=== PATIENT | male | born 1975 | race Caucasian/White ===

== ENCOUNTER → 2019-03-01 16:32 | Outpatient (CLI) | payer OTHER, SELFPAY ==
[2019-03-01 17:51] LABS: Cholesterol 232 mg/dL (140-199); HDL Cholesterol 52 mg/dL (40-60); LDL Cholesterol Calculated 154 mg/dL (<100); Triglycerides 132 mg/dL (35-150)
[2019-03-01 18:05] LABS: Vitamin D 25 Hydroxy (D3) 34.5 ng/mL (30.0-100.0)
== END ==
PROVIDERS: PCP Student in an Organized Health Care Education/Training Program; Visit Provider Student in an Organized Health Care Education/Training Program
DX: Z13.220 Encounter for screening for lipoid disorders (principal); E55.9 Vitamin D deficiency, unspecified
CPT/HCPCS: 36415; 80061; 82306

== ENCOUNTER → 2020-05-29 15:52 | Outpatient (CLI) | payer OTHER, SELFPAY ==
[2020-05-29] MEDS: COVID-19 VACC, Ad26(JANSSEN)/PF 0.5 ML IM (16:00)
== END ==
PROVIDERS: PCP Student in an Organized Health Care Education/Training Program; Visit Provider Internal Medicine
DX: Z23 Encounter for immunization (principal)
CPT/HCPCS: 0031A; 91303

== ENCOUNTER → 2020-08-16 11:46 | Outpatient (CLI) | payer OTHER, SELFPAY ==
--- NOTE | 2020-08-16 11:48 | DI.RAD.S_ITS ---
PROCEDURE: XR KNEE LT 3V INDICATIONS: Unilateral primary osteoarthritis, unspecified kne TECHNIQUE: 3 views of the knee were acquired. COMPARISON: None. FINDINGS: Bones: No fractures or dislocations. No suspicious bony lesions. Note is made of a fixation screw crossing the lateral femoral condyle at the knee level, likely related to tendon transfer procedure. There is moderate narrowing of the medial compartment joint with at the the, consistent with longstanding posttraumatic degenerative osteoarthritic change. Soft tissues: No joint effusion. No suspicious soft tissue calcifications. IMPRESSION: No acute trauma found. Moderate osteoarthritis medial compartment. Tendon transfer fixation device noted at the lateral femoral condyle area. Dictated by: Franki Dykes M.D. on 08/16/2020 at 12:08 Approved by: Franki Dykes M.D. on 08/16/2020 at 12:10
== END ==
PROVIDERS: PCP Student in an Organized Health Care Education/Training Program; Referring Provider Physical Medicine & Rehabilitation; Visit Provider Physical Medicine & Rehabilitation
DX: Z98.890 Other specified postprocedural states; M17.12 Unilateral primary osteoarthritis, left knee
CPT/HCPCS: 73562

== ENCOUNTER → 2021-02-07 15:51 | Outpatient (CLI) | payer OTHER, SELFPAY ==
[2021-02-07] MEDS: COVID-19 VACC #3, MRNA(MOD) 50 MCG/0.25 ML VIAL IM (16:17)
== END ==
PROVIDERS: PCP Student in an Organized Health Care Education/Training Program; Visit Provider Internal Medicine
DX: Z23 Encounter for immunization (principal)
CPT/HCPCS: 0013A; 91301

== ENCOUNTER → 2021-03-06 07:09 | Outpatient (CLI) | payer OTHER, SELFPAY ==
[2021-03-06 07:39] LABS: COVID19 -Nasal RAPID Negative (Negative)
== END ==
PROVIDERS: PCP Student in an Organized Health Care Education/Training Program; Visit Provider Physician Assistant
DX: Z20.822 Contact with and (suspected) exposure to COVID-19 (principal)
CPT/HCPCS: 87635

== ENCOUNTER → 2021-07-17 07:09 | Outpatient (CLI) | payer OTHER, SELFPAY ==
[2021-07-17 08:22] LABS: Add Manual Diff / Slide Review NO; Basophils Absolute Auto 0 /uL (0-100); Basophils Percent Auto 1.1 % (0-2); Eosinophils Absolute Auto 100 /uL (0-450); Hematocrit 40.1 % (41-53); Hemoglobin 13.5 g/dL (13.5-17.5); Lymphocytes Absolute Auto 1300 /uL (1100-4500); Lymphocytes Percent Auto 31.5 % (25-40); Mean Corpuscular HGB Conc 33.6 % (30-36); Mean Corpuscular Hemoglobin 29.4 PG (26-34); Mean Corpuscular Volume 87.6 fL (80-100); Monocytes Absolute Auto 500 /uL (0-900); Monocytes Percent Auto 11.1 % (3-14); Neutrophils Absolute Auto 2200 /uL (1500-7000); Neutrophils Percent Auto 53.3 % (50-75); Platelet Count 189 X10^3/uL (150-400); Red Blood Cell Count 4.58 X10^6/uL (4.5-5.9); Red Cell Distribution Width 14.3 % (11.6-14.8); White Blood Cell Count 4.2 X10^3/uL (4.5-11.0)
[2021-07-17 08:33] LABS: Alanine Aminotransferase 27 IU/L (<50); Albumin 4.2 g/dL (3.5-5.0); Albumin Globulin Ratio 1.5 (1.0-2.8); Alkaline Phosphatase 46 U/L (38-126); Aspartate Aminotransferase 36 IU/L (17-59); BUN Creatinine Ratio 17.6 (6-22); Bilirubin Total 0.4 mg/dL (0.2-1.3); Blood Urea Nitrogen 18 mg/dL (9-20); Calcium 8.8 mg/dL (8.4-10.2); Carbon Dioxide 31 mmol/L (22-32); Chloride 106 mmol/L (98-107); Estimated Glomerular Filt Rate > 60 mL/min (>60); Globulin 2.8 g/dL (1.7-4.1); Glucose 92 mg/dL (70-100); HEMOLYSIS < 15 (0-50); Potassium 4.3 mmol/L (3.4-5.1); Sodium 142 mmol/L (137-145)
[2021-07-17 08:50] LABS: Vitamin D 25 Hydroxy (D3) 35.2 ng/mL (30.0-100.0)
[2021-07-17 09:05] LABS: TSH w/ Reflex to FT4 2.92 uIU/mL (0.47-4.68); Testosterone 343 ng/dL (132-813)
[2021-07-17 09:22] LABS: Vitamin B12 206 pg/mL (239-931)
== END ==
PROVIDERS: PCP Student in an Organized Health Care Education/Training Program; Referring Provider Student in an Organized Health Care Education/Training Program; Visit Provider Student in an Organized Health Care Education/Training Program
DX: F34.1 Dysthymic disorder (principal); R53.83 Other fatigue; Z79.1 Long term (current) use of non-steroidal anti-inflammatories (NSAID)
CPT/HCPCS: 36415; 80053; 82306; 82607; 84403; 84443; 85025

== ENCOUNTER → 2022-09-24 10:43 | Outpatient (CLI) | payer OTHER, SELFPAY ==
[2022-09-24 12:15] LABS: Add Manual Diff / Slide Review NO; Basophils Absolute Auto 0 /uL (0-100); Basophils Percent Auto 0.7 % (0-2); Eosinophils Absolute Auto 100 /uL (0-450); Eosinophils Percent Auto 2.1 % (2-4); Hematocrit 41.2 % (41-53); Hemoglobin 14.1 g/dL (13.5-17.5); Lymphocytes Absolute Auto 1500 /uL (1100-4500); Lymphocytes Percent Auto 29.5 % (25-40); Mean Corpuscular HGB Conc 34.3 % (30-36); Mean Corpuscular Hemoglobin 29.7 PG (26-34); Mean Corpuscular Volume 86.6 fL (80-100); Monocytes Absolute Auto 500 /uL (0-900); Monocytes Percent Auto 10.3 % (3-14); Neutrophils Absolute Auto 3000 /uL (1500-7000); Neutrophils Percent Auto 57.4 % (50-75); Platelet Count 249 X10^3/uL (150-400); Red Blood Cell Count 4.76 X10^6/uL (4.5-5.9); Red Cell Distribution Width 14.2 % (11.6-14.8); White Blood Cell Count 5.2 X10^3/uL (4.5-11.0)
[2022-09-24 13:04] LABS: TSH w/ Reflex to FT4 1.22 uIU/mL (0.47-4.68)
[2022-09-28 09:50] LABS: Percent Free Testosterone 3.28 % (1.50-4.20); Testosterone Free 9.79 ng/dL (5.00-21.00); Testosterone Total 298.4 ng/dL (264.0-916.0)
== END ==
PROVIDERS: PCP Pediatrics; Referring Provider Pediatrics; Visit Provider Pediatrics
DX: F41.9 Anxiety disorder, unspecified (principal); R53.83 Other fatigue
CPT/HCPCS: 36415; 84402; 84403; 84443; 85025

== ENCOUNTER → 2023-09-16 07:48 | Outpatient (CLI) | payer OTHER, SELFPAY | PROVIDERS: PCP Family Medicine; Referring Provider Family Medicine; Visit Provider Family Medicine | DX: Z12.11 Encounter for screening for malignant neoplasm of colon (principal) | CPT/HCPCS: 82274 ==

== ENCOUNTER → 2023-09-16 08:52 | Outpatient (CLI) | payer OTHER, SELFPAY ==
[2023-09-16 09:52] LABS: Hematocrit 42.5 % (41-53); Hemoglobin 14.3 g/dL (13.5-17.5); Mean Corpuscular HGB Conc 33.7 % (30-36); Mean Corpuscular Hemoglobin 29.3 PG (26-34); Platelet Count 227 X10^3/uL (150-400); Red Blood Cell Count 4.89 X10^6/uL (4.5-5.9); Red Cell Distribution Width 14.5 % (11.6-14.8)
[2023-09-16 10:06] LABS: Alanine Aminotransferase 23 IU/L (<50); Albumin 4.3 g/dL (3.5-5.0); Albumin Globulin Ratio 1.3 (1.0-2.8); Alkaline Phosphatase 51 U/L (38-126); Aspartate Aminotransferase 31 IU/L (17-59); BUN Creatinine Ratio 21.6 (6-22); Bilirubin Total 0.7 mg/dL (0.2-1.3); Blood Urea Nitrogen 21 mg/dL (9-20); Calcium 9.1 mg/dL (8.4-10.2); Carbon Dioxide 29 mmol/L (22-32); Chloride 105 mmol/L (98-107); Cholesterol 274 mg/dL (140-199); Estimated Glomerular Filt Rate > 60 mL/min (>60); Globulin 3.2 g/dL (1.7-4.1); Glucose 98 mg/dL (70-100); HDL Cholesterol 50 mg/dL (40-60); HEMOLYSIS < 15 (0-50); LDL Cholesterol Calculated 156 mg/dL (<100); Potassium 4.9 mmol/L (3.4-5.1); Sodium 138 mmol/L (137-145); Total Protein 7.5 g/dL (6.3-8.2); Triglycerides 341 mg/dL (35-150)
[2023-09-16 10:36] LABS: TSH w/ Reflex to FT4 1.61 uIU/mL (0.47-4.68)
[2023-09-16 10:38] LABS: Testosterone 286 ng/dL (132-813)
[2023-09-16 10:55] LABS: Vitamin B12 259 pg/mL (239-931)
== END ==
PROVIDERS: PCP Family Medicine; Referring Provider Family Medicine; Visit Provider Family Medicine
DX: E78.00 Pure hypercholesterolemia, unspecified (principal); R53.83 Other fatigue; E53.8 Deficiency of other specified B group vitamins
CPT/HCPCS: 36415; 80053; 80061; 82607; 84403; 84443; 85027

== ENCOUNTER → 2024-01-15 10:19 | Outpatient (CLI) | payer OTHER, SELFPAY ==
[2024-01-15 11:39] LABS: Cholesterol 193 mg/dL (140-199); HDL Cholesterol 51 mg/dL (40-60); LDL Cholesterol Calculated 126 mg/dL (<100); Triglycerides 82 mg/dL (35-150)
[2024-01-15 12:10] LABS: Testosterone 221 ng/dL (132-813)
[2024-01-15 19:26] LABS: HIV 1 & 2 Ab/Ag 4th Gen Combo NEGATIVE (NEGATIVE); Hep C Virus Ab w/Reflex Quant NEGATIVE s/c (NEGATIVE)
== END ==
PROVIDERS: PCP Family Medicine; Referring Provider Family Medicine; Visit Provider Family Medicine
DX: E29.1 Testicular hypofunction (principal); E78.00 Pure hypercholesterolemia, unspecified; Z11.59 Encounter for screening for other viral diseases; Z11.4 Encounter for screening for human immunodeficiency virus [HIV]
CPT/HCPCS: 36415; 80061; 84403; 86803; 87389

== ENCOUNTER → 2024-08-28 06:23 | Outpatient (CLI) | payer OTHER, SELFPAY ==
[2024-08-28 07:30] LABS: Add Manual Diff / Slide Review NO; Basophils Absolute Auto 0 /uL (0-100); Basophils Percent Auto 0.9 % (0-2); Eosinophils Absolute Auto 200 /uL (0-450); Eosinophils Percent Auto 4.3 % (2-4); Hematocrit 43.5 % (41-53); Hemoglobin 14.6 g/dL (13.5-17.5); Lymphocytes Absolute Auto 1300 /uL (1100-4500); Lymphocytes Percent Auto 28.8 % (25-40); Mean Corpuscular HGB Conc 33.6 % (30-36); Mean Corpuscular Hemoglobin 29.7 PG (26-34); Mean Corpuscular Volume 88.2 fL (80-100); Monocytes Absolute Auto 500 /uL (0-900); Monocytes Percent Auto 10.2 % (3-14); Neutrophils Absolute Auto 2600 /uL (1500-7000); Neutrophils Percent Auto 55.8 % (50-75); Platelet Count 210 X10^3/uL (150-400); Red Blood Cell Count 4.93 X10^6/uL (4.5-5.9); Red Cell Distribution Width 15.1 % (11.6-14.8); White Blood Cell Count 4.6 X10^3/uL (4.5-11.0)
[2024-08-28 07:48] LABS: Prothrombin Time 11.7 SECONDS (9.4-12.5)
[2024-08-28 07:54] LABS: Alanine Aminotransferase 27 IU/L (<50); Albumin 4.2 g/dL (3.5-5.0); Albumin Globulin Ratio 1.6 (1.0-2.8); Alkaline Phosphatase 48 U/L (38-126); Aspartate Aminotransferase 40 IU/L (17-59); BUN Creatinine Ratio 15.1 (6-22); Bilirubin Total 0.8 mg/dL (0.2-1.3); Blood Urea Nitrogen 14 mg/dL (9-20); Calcium 8.8 mg/dL (8.4-10.2); Carbon Dioxide 28 mmol/L (22-32); Chloride 103 mmol/L (98-107); Estimated Glomerular Filt Rate > 60 mL/min (>60); Globulin 2.6 g/dL (1.7-4.1); Glucose 94 mg/dL (70-99); HEMOLYSIS < 15 (0-50); Potassium 4.4 mmol/L (3.4-5.1); Sodium 138 mmol/L (137-145); Total Protein 6.8 g/dL (6.3-8.2)
[2024-08-28 08:23] LABS: Prostate Specific Antigen 0.454 ng/mL (0.10-4.00)
== END ==
PROVIDERS: PCP Family Medicine; Referring Provider Family Medicine; Visit Provider Family Medicine
DX: Z01.812 Encounter for preprocedural laboratory examination (principal); E29.1 Testicular hypofunction; Z79.899 Other long term (current) drug therapy
CPT/HCPCS: 36415; 80053; 84153; 84402; 84403; 85025; 85610

== ENCOUNTER → 2024-10-04 07:14 | Outpatient (CLI) | payer OTHER, SELFPAY ==
[2024-10-04 08:28] LABS: Hemoglobin A1C% w Est Avg Glu 5.2 % (4.0-6.0)
[2024-10-04 08:38] LABS: Vitamin D 25 Hydroxy (D3) 27.3 ng/mL (30.0-100.0)
== END ==
PROVIDERS: PCP Family Medicine; Referring Provider Orthopaedic Surgery Adult Reconstructive Orthopaedic Surgery; Visit Provider Orthopaedic Surgery Adult Reconstructive Orthopaedic Surgery
DX: Z01.812 Encounter for preprocedural laboratory examination (principal)
CPT/HCPCS: 36415; 82306; 83036

== ENCOUNTER 2025-02-05 06:20 | Day surgery (SDC) | payer OTHER, SELFPAY ==
[2025-01-30 08:58] VITALS: BMI 29.4
--- NOTE | 2025-02-05 | DI.RAD.S_ITS ---
PROCEDURE: XR KNEE LT 2V INDICATIONS: post op total knee TECHNIQUE: 2 view(s) of the knee acquired. COMPARISON: [facility], [facility], XR KNEE LT 3V, 08/16/2020, 11:49. FINDINGS: Expected postoperative changes with soft tissue swelling and soft tissue gas status post left total knee arthroplasty. No radiographic evidence of periprosthetic fracture or high attenuation surgical instrument or foreign body. Again noted unchanged cannulated pin lateral femoral condyle. IMPRESSION: Expected post-operative appearance of a knee arthroplasty. Dictated by: Jarett Leslie M.D. on 02/05/2025 at 14:56 Approved by: Jarett Leslie M.D. on 02/05/2025 at 15:03
[2025-02-05 06:47] VITALS: BP 123/76; PULSE 63; RESP 16; TEMP 36.4; O2SAT 96
[2025-02-05] MEDS: LACTATED RINGERS 1,000 ML 42 ML IV ×3 (07:06→10:11)
[2025-02-05] MEDS: FAMOTIDINE 20 MG/2 ML VIAL IV (07:06)
--- NOTE | 2025-02-05 07:22 | PM.PREOP ---
Pre-operative Note Interval Note History & Physical reviewed/Exam performed by Physician: Yes Changes to H&P: No
[2025-02-05] MEDS: TRANEXAMIC ACID 1,000 MG VIAL 1000 MG INJ ×2 (08:00→09:31)
--- NOTE | 2025-02-05 08:19 | SUR.OPER ---
Supine on padded OR bed. Pillow under head, arms secured on padded armboards <90 degree abduction. Safety belt across torso. Non-operative leg secured with tape over blanket over lower leg. Operative leg secured in DeMayo/Vinod/Nathe positioner. Foam padded brace at thigh of operative leg. PA in room at time of positioning to assist. All pressure points padded and protected.
[2025-02-05] MEDS: KETOROLAC 30 MG/ML VIAL 15 MG INJ (08:25)
[2025-02-05] MEDS: ACETAMINOPHEN IV 1,000 MG/100 ML VIAL 400 MG IV (08:46)
--- NOTE | 2025-02-05 09:38 | P.OP_ITS ---
Operative Date/Time/Diagnoses Date of procedure: 02/05/25 Time of procedure: 07:45 Pre-op diagnosis: Left knee osteoarthritis status post prior ACL reconstruction Post-op diagnosis: same Procedure & Clinicians Procedure: Left total knee arthroplasty Same procedure(s) as scheduled: Yes Surgeon: Vitaly Rosen Assisted?: Yes Oyster Grader: Elena Traore Anesthesia Type: Spinal, Sedation and Local Operative Notes Findings: Severe arthritis Specimen(s): none sent Applied: implant(s) Estimated Blood Loss (mL): 50 Tourniquet time (min): 62 Procedure in detail: Left Gap-Balanced Jose Persona Medial-Congruent Primary Total Knee Arthroplasty Implants: * Size 9 Cruciate Retaining Femoral Component * Size G Tibial Component * Size 16 Medial Congruent Polyethylene Insert * Unresurfaced Patella Procedure Summary: This 49-year-old male patient had a prior ACL reconstruction before to the development of severe knee arthritis. I did not encounter the remaining fixation on the femoral side during instrumentation so this was left in place. The tibial tunnel was fairly small and I was able to position the keel for the uncemented tibial base plate slightly adjacent to it. The center of the keel was drilled through fresh bone. I did bone graft the tunnel after removing the remainder of the ACL graft from that area. Fixation with the uncemented tibial base plate was excellent and bone quality was highly robust consistent with his age sex and physical activity levels. The tibia was cut in slight varus to balance his extension gap where he had a varus deformity preoperatively and no soft tissue release was needed. Procedure in Detail: This patient was seen preoperatively and evaluated for knee pain which was refractory to numerous nonoperative treatment modalities. Their pain correlated with radiographic changes demonstrating significant degeneration in the knee joint. The risks and benefits of continued nonoperative management versus operative management were discussed at length and all of the patient?s questions were answered. Additional educational materials providing further details beyond our discussion in clinic were provided via a publicly available patient educati on video which included the incidence of medical complications associated with total knee arthroplasty, reasons for revision following total knee arthroplasty, and patient satisfaction rates following total knee arthroplasty. With this understanding of the risks inherent to the procedure, the patient elected to move forward with operative management. Following preoperative optimization, the patient was scheduled for surgery. The patient was met in the preoperative holding area the day of the procedure and all questions were answered. The patient?s nares were swabbed in order to decolonize them from MRSA. Informed consent was signed and the left limb was marked with indelible ink.? The patient was brought back to the operating room where anesthesia was induced. The patient was transferred to the operating table and all bony prominences were padded. The operative site was prepped and draped in the usual sterile fashion. A second prep stick was utilized following drape placement. The incision was marked corresponding to the medial aspect of the tibial tubercle and the patella. Ioban was wrapped circumferentially around the knee. Prior to incision, tranexamic acid and cefazolin were administered. Templating images were displayed. A timeout procedure was performed verifying the patient?s identity, medical comorbidities, allergies, relevant medications, anesthesia type and the surgical plan. All present were in agreement. The assistance of a physician assistant administrator was required for positioning, room setup, soft tissue retraction and wound closure. Without this assistance, the procedure would have been significantly more challenging and time consuming.?? The tourniquet was inflated prior to incision. I made an anterior incision over the knee, dissected through the subcutaneous tissues and identified the lateral border of the VMO. Medial and lateral soft tissue flaps were developed. A mid- vastus arthrotomy was performed ensuring that adequate capsular tissue would remain for closure at the conclusion of the procedure. The knee was brought into extension and the medial soft tissues were released off the joint line of the tibia. Tissue overlying the distal anterior femur was released to allow for later assessment for anterior notching but left in place. A portion of the retropatellar fat pad was excised while protecting the patellar tendon. The patella was everted. The patella was not resurfaced. Osteophytes were excised and a lateral facetectomy was performed. The patella was released from its everted position.?? I flexed the knee to 90 degrees and placed retractors to allow access to the notch. An opening reamer was used to gain access to the femoral canal and an intramedullary sravanthi was introduced into the canal. Diaphyseal fit was obtained in order to plan a distal femoral resection at 5 degrees relative to the anatomic axis. A +0 resection was planned and assessed using an ilan wing. I then made the cut using a sagittal saw. This provided additional access to the femoral notch. The ACL and PCL were excised. Retractors were placed on the lateral and medial tibia. I hyperflexed the knee while externally rotating it to sublux the tibia anteriorly. I placed a Jose retractor posteriorly and used this to provide additional anterior subluxation. The remainder of the PCL root was released. An extramedullary guide was positioned for a resection in slight varus. A +2 resection off the medial tibia was planned and the tibial cutting jig was pinned in place. I evaluated the depth, varus-valgus alignment and slope of the planned tibial resection prior to making the cut. I cut the tibia with a sagittal saw while using retractors to protect the MCL, patellar tendon, and posterolateral structures.? The knee was repositioned in extension and the Fuzion soft tissue balancing gauge was introduced. This demonstrated that there was equal tension in the medial and lateral compartments of the knee with the knee in full extension and no additional soft tissue releases were necessary. When 60 pounds of force was applied to the Fuzion device, the extension gap opened to 12 mm. I moved the knee into 90 degrees of flexion, and the Fuzion device was recalibrated by removing a 9 mm saeed to allow assessment of the flexion gap. The Fuzion block was placed perpendicular to the resected surface of the tibia and the resected surface of the distal femur. Sixty pounds of traction was applied to match the tension of the extension gap. This externally rotated the femur to 0 degrees. Pins were placed in the 12 mm holes. Appropriate sizing was determined and a 4-in-1 block was placed. This was double checked using the Fuzion device to ensure that it would open to an equal distance as the extension gap when the same amount of force was applied. The Fuzion block was also used to assess flexion gap symmetry. An ilan wing was used to ensure there would be no anterior notching. Retractors were placed to protect the soft tissues during resection. Captured cuts were performed with a sagittal saw for the anterior and posterior femur as well as the corresponding chamfers.?A laminar english instructor and retractors were used to expose the posterior knee and the menisci and posterior osteophytes were removed. Trial components were placed and the construct was assessed. Range of motion was assessed by ensuring the knee could achieve full extension and assessing maximum passive knee flexion by elevating the femur and allowing the heel to passively fall towards the buttock. Gap symmetry was assessed by stressing the medial and lateral compartments in both extension and flexion. Laxity was assessed in both extension and flexion and the polyethylene trial was adjusted with shims as necessary. Patellar tracking was assessed with knee flexion. Once satisfied with the construct, I moved forward with implant insertion. Lug holes were drilled in the femur and the tibia was prepped ensuring appropriate sizing and rotation relative to the tibial tubercle.?? The bony ends were irrigated. A portion of the anterior chamfer cut was utilized as a to plug the hole from the intramedullary sravanthi in the femur. I impacted the tibial component into place. The tibia was reduced underneath the femur. I placed the femoral component. I brought the knee into extension and manually pressurized the construct by pushing on the heel. The knee was bathed in a dilute mixture of betadine and peroxide. A mixture of Ropivacaine, Epinephrine and Toradol was infiltrated throughout the soft tissues into structures including the VMO, patellar tendon, quadriceps tendon, MCL and femoral periosteum. The knee was copiously irrigated with pulse lavage. The knee was again trialed. Range of motion was assessed by ensuring the knee could achieve full extension and assessing maximum passive knee flexion by elevating the femur and allowing the heel to passively fall towards the buttock. Gap symmetry was assessed by stressing the medial and lateral compartments in both extension and flexion. Laxity was assessed in both extension and flexion and the polyethylene trial was adjusted with shims as necessary. Patellar tracking was assessed with knee flexion. The tourniquet was let down and the polyethylene trial was removed. I inspected the knee inspected for any residual bleeding. Once hemostasis was achieved I inserted the final polyethylene and ensured appropriate engagement of the dovetail locking mechanism.?? The arthrotomy was closed with non-absorbable interrupted suture ensuring that this extended to the top of the arthrotomy. This was backed up with running barbed suture throughout the arthrotomy. The skin was closed with 2-0 and 3-0 sutures. Surgical glue was applied and a soft dressing was placed.?The sponge, instrument and needle counts were reported as being correct at the end of the case. The patient was transferred from the operating table back to a stretcher. The patient emerged from anesthesia without difficulty and was taken to the PACU in a stable condition.? Plan for aftercare: * Weightbearing as tolerated * Aspirin 81 twice per day for DVT prophylaxis * Multimodal pain regimen with no IV opioids ordered * Anticipate discharge home later today * Follow up at [facility] in 2 weeks for wound check Complications: none Post-operative Condition: stable Disposition: same day surgery
[2025-02-05 10:19] VITALS: BP 107/58; PULSE 75; RESP 19; TEMP 36.9; O2SAT 95
[2025-02-05 10:26] VITALS: BP 100/55; PULSE 77; RESP 18; TEMP 36.9; O2SAT 96
[2025-02-05 10:31] VITALS: BP 111/59; PULSE 75; RESP 19; TEMP 36.9; O2SAT 95
[2025-02-05 10:37] VITALS: BP 105/68; PULSE 70; RESP 15; TEMP 36.8; O2SAT 97
[2025-02-05] MEDS: MELOXICAM 7.5 MG TABLET 15 MG PO (11:30)
[2025-02-05 12:00] VITALS: BP 116/67; PULSE 73; RESP 18; TEMP 36.6
--- NOTE | 2025-02-05 12:04 | SUR.PHASEII ---
1145 PT here for eval. Pt able to stand and void. Good pms
--- NOTE | 2025-02-05 13:19 | PT.IIE ---
Current Diagnoses Unilateral primary osteoarthritis, left knee (02/05/25) Surgery Performed Operation Date: 02/05/25 07:45 Actual Procedures p Total Knee Arthroplasty(Left) - Vitaly Rosen MD Surgical History (Last Updated 01/30/25 @ 09:07 by Martha Casiano RN) Anesthesia History of knee surgery (~2009) Hx of carpal tunnel repair (12/22/24) Hx of LASIK Medical History (Last Updated 10/04/24 @ 08:15 by Vitaly Rosen MD) Anxiety Degenerative joint disease of knee Fatigue Hypogonadism in male Primary osteoarthritis of left knee Physical Therapy Inpatient Evaluation/Re-Eval M1 PT IP Prior Functional Status Start: 02/05/25 12:39 Freq: NEEDED Status: Discharge Protocol: Document 02/05/25 12:54 AMB (Rec: 02/05/25 13:16 AMB [id number]) Medical Review Prior Functional Status Medical History Yes Reviewed Communication WFL Mobility and Gait Independent in the community Social History Household Members spouse Living Arrangements House Number of Floors ( One Floor Floors) Number of Stairs To 10 NATA with railing Enter/Railing? 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 Employment Status [employer] Employed Additional Social Taking 8 weeks off before returning to work History Comment M2 PT-IP Current Condition Start: 02/05/25 12:39 Freq: NEEDED Status: Discharge Protocol: Document 02/05/25 12:54 AMB (Rec: 02/05/25 13:16 AMB [id number]) Physical Therapy Current Condition Current Condition Evaluation Date 02/05/25 Treatment Diagnosis L TKA Onset Date 02/05/25 M3 PT-IP Subjective Start: 02/05/25 12:39 Freq: NEEDED Status: Discharge Protocol: Document 02/05/25 12:54 AMB (Rec: 02/05/25 13:16 AMB [id number]) Subjective Physical Therapy Visit Type Type Initial Evaluation Visit Start Time 11:45 Visit Stop Time 12:30 Physical Therapy Visit Comments Patient Comments Pt ready to get up, needs to go to the bathroom Patient Goals Get home Therapy Pain Assessment Pain Present Pain Present Denied Pain M4 PT-IP Mobility and Gait Start: 02/05/25 12:39 Freq: NEEDED Status: Discharge Protocol: Document 02/05/25 12:54 AMB (Rec: 02/05/25 13:16 AMB [id number]) PT-Transfer Assessment Sit to and From Stand Sit to and from Standby Assistance Stand Equipment Transfer Assistive Gait Belt Device Transfers Transfer Technique Stand Step Pivot Transfer Ability Level of Assist Standby Assistance Gait Assessment Gait Gait Assistance Contact Guard Assist Required: Distance (Feet) 20 Assistive Devices Assistive Device Gait Belt,Front Wheeled Walker Gait Deviations General Gait Pattern Antalgic,Decreased Stride Length,Decreased Feet Clearance,Step-to Gait Factors Limiting Gait Function Factors Limiting Decreased Activity Tolerance,Decreased Strength,Limited Gait Function Range of Motion,Pain Comments Gait Comments Michi was sitting EOB with at bedside when PT entered PACU. He needed to urinate, so was given urinal but needed to change clothes afterwards which nursing assisted with. Reviewed HEP in detail. Then stood up at EOB with CGA and ambulated 20' with short steps, verbal cues to relax shoulders. Stair Climbing Assessment Evaluation Level of Assist On Contact Guard Assistance Stairs Devices Stair Climbing Front Wheel Walker Assistive Devices Technique/Endurance Stair Climbing Ascend and Descend Direction Stair Climbing Step to Step Technique Number of Steps 1 Climbed Query Text: Stair Climbing Set # 2 Repetitions (reps) Comments Stair Climbing Michi was able to verbalize which leg to use to lead Comments with ascending the stairs. On the first attempt he did appear slightly off balance and needed Sanya, but on the second attempt he was much better and was able to perform the step with CGA. M5 PT-IP Objective Assessments Start: 02/05/25 12:39 Freq: NEEDED Status: Discharge Protocol: Document 02/05/25 12:54 AMB (Rec: 02/05/25 13:16 AMB [id number]) Orientation Orientation/Cognition Level of Alertness Alert Gross Range of Motion Lower Extremity ROM Assessment Left Impaired Impairments impaired with flexion and extension, in maggy wrap Strength Lower Extremity Strength Assessment Left Impaired Knee 2 Ankle 5 Comments Strength Comments Good quad contraction isometrically M6 PT-IP Treatment Start: 02/05/25 12:39 Freq: NEEDED Status: Discharge Protocol: Document 02/05/25 12:54 AMB (Rec: 02/05/25 13:16 AMB [id number]) Physical Therapy Treatment Exercises Exercises Ankle Pumps,Gluteal Sets,Quad Sets,Heel Slides,Straight Leg Raises,Short Arc Quads,Passive Knee Extension Hang ,Seated Knee Flexion/Extension Education Education Provided Precautions,Weight Bearing Status,Post-Op Packet,Safety M7 PT-IP Assessment and Plan Start: 02/05/25 12:39 Freq: NEEDED Status: Discharge Protocol: Document 02/05/25 12:54 AMB (Rec: 02/05/25 13:16 AMB [id number]) PT Summary Assessment and Plan Potential Rehabilitation Good Potential Status of Condition Stable at Evaluation Summary Impairments Pain,Strength,Gait,Activity Tolerance Progress Towards Progressing Toward Goals Goals Assessment Summary Michi was sitting up in the PACU with his at bedside when PT entered. He was extensively educated in his HEP since he has his first outpatient PT visit next week. He was able to ambulate with FWW and gait belt with CGA for 20' with verbal cues to relax shoulders (he does have a recent history of carpal tunnel release). He was instructed in stairs as he has 10 steps to enter his home. He was able to ascend and descend a platform step with a FWW with CGA and correct foot placement. When medically stable he should be able to return home with his given his ability to ambulate and ascend and descend a step with CGA. Goals Bed Mobility Goal Independent Transfer Goal Independent Gait Goal Independent Gait Distance 20 Other Goals stairs 10 NATA Frequency of Treatment Frequency Of Discharge Treatment Treatment Plan Physical Therapy Bed Mobility Training,Transfer Training,Gait Training, Treatment Plan Therapeutic Exercise,Manual Therapy Weight Bearing Status Weight Bearing Weight Bear as Tolerated Status Recommendations To Nursing Amount of Assist 1 Person Assist Needed Discharge Recommendations PT Discharge Home with Assistance,Outpatient PT Recommendations Transportation Needs Private Vehicle at Discharge - PT assist 1
== END 2025-02-05 12:42 | disposition home or self-care (01) ==
PROVIDERS: Family Provider Internal Medicine; PCP Family Medicine; Referring Provider Family Medicine; Visit Provider Orthopaedic Surgery Adult Reconstructive Orthopaedic Surgery
PROC: 0SRD0JZ Replacement of Left Knee Joint with Synthetic Substitute, Open Approach (ICD-10-PCS; CPT 27447; principal; 2025-02-05 07:45)
DX: M17.12 Unilateral primary osteoarthritis, left knee (principal)
CPT/HCPCS: 27447; 73560; 82962; 97110; 97161; C1776; C1713; J0131; J0689; J1100; J1885; J2250; J2405; J2704; J3010; J3475; J7120